=== PATIENT | male | born 1955 | race Caucasian/White ===

== ENCOUNTER 2022-11-25 17:03 | Emergency (ER) | payer MEDICARE, OTHER ==
[2022-11-25] MEDS ORDERED: Sodium Chloride 0.9% 10 ML Syringe FLUSH PRN (17:14)
[2022-11-25] MEDS ORDERED: EPINEPHrine 1 MG/ML SDV IM ONE (17:14)
[2022-11-25] MEDS ORDERED: methylPREDNISolone Sodium Succinate 125 MG/2 ML SDV IV ONE (17:14)
[2022-11-25] MEDS ORDERED: diphenhydrAMINE 50 MG/ML SDV IVPUSH ONE (17:14)
== END 2022-11-25 18:37 | disposition home or self-care (01) ==
LOC: JP.ED 17:03
DX: T78.2XXA Anaphylactic shock, unspecified, initial encounter (principal); J45.909 Unspecified asthma, uncomplicated; Z88.5 Allergy status to narcotic agent
CPT/HCPCS: 96372; 96374; 96375; 99284; J0171; J1200; J2930; J3490